=== PATIENT | female | born 1960 | race Caucasian/White ===

== ENCOUNTER → 2017-12-19 | Outpatient (CLI) | payer OTHER ==
[~2017-12-19] MED LIST: BUPR-149 PO; BUSP15TA69 PO; CALC-661 PO; CITA-139 PO; IBUP-56 PO; LISI-353 PO; LORA-802 PO; METH18ERPT PO
--- NOTE | 2017-12-19 13:44 | RADIOLOGY IMAGING REPORT ---
FACILITY: [facility] PATIENT NAME: Angelica Gale : 1960 MR: [id number] V: [id number] EXAM DATE: ORDERING PHYSICIAN: FRANCES COONEY TECHNOLOGIST: Location: [facility] Patient: Angelica Gale : 1960 Visit/Account:[id number] Date of Sevice: 12/19/2017 FOOT 3 VIEW RIGHT HISTORY: Medial foot pain COMPARISON: None FINDINGS: No evidence of acute fracture or dislocation. Bohler angle is well maintained. Base of the 5th metatarsal is intact. TMT joints are well aligned. Mild degenerative changes at the first MTP marianna int. IMPRESSION: 1. Mild degenerative changes at the first MTP joint. Report Dictated By: Beto Tucker MD at 12/19/2017 1:38 PM Report E-Signed By: Beto Tucker MD at 12/19/2017 1:39 PM WSN:[id number]
== END ==
LOC: RAD 10:20
PROVIDERS: ATTEND Nurse Practitioner Family
DX: M19.071 Primary osteoarthritis, right ankle and foot (principal)

== ENCOUNTER → 2018-02-16 | Outpatient (CLI) | payer OTHER ==
[2018-02-16 11:37] LABS: PLATELET COUNT, AUTOMATED 337 K/uL (150-450)
== END ==
LOC: LAB 10:45
PROVIDERS: ATTEND Nurse Practitioner Family
DX: Z00.00 Encounter for general adult medical examination without abnormal findings (principal)
CPT/HCPCS: 36415; 82040; 82247; 82310; 82374; 82435; 82465; 82565; 82947; 83718; 84075; 84132; 84155; 84295; 84443; 84450; 84460; 84478; 84520; 85025

== ENCOUNTER → 2018-02-16 | Outpatient (CLI) | payer OTHER | LOC: LAB 10:49 | PROVIDERS: ATTEND Psychiatry & Neurology Psychiatry | DX: F31.0 Bipolar disorder, current episode hypomanic (principal) | CPT/HCPCS: 82306; 84439; 84481 ==

== ENCOUNTER → 2018-09-09 | Outpatient (CLI) | payer OTHER ==
[~2018-09-09] MED LIST changes: -CITA-139 PO; +CITA-145 PO
--- NOTE | 2018-09-10 10:44 | RADIOLOGY IMAGING REPORT ---
[place] [facility] [place] HARSH PLASENCIA : [id number] MR: [id number] V: [id number] EXAM DATE: ORDERING PHYSICIAN: EULA GUZMÁN TECHNOLOGIST: Sara Mckeon PROCEDURE:BILATERAL DIGITAL SCREENING MAMMOGRAM WITH CAD ASSISTED INTERPRETATION & 3D TOMOSYNTHESIS COMPARISON:Prior mammograms 05/10/16, 11/17/13. INDICATIONS:SCREENING FINDINGS: Moderately dense fibroglandular tissue is seen throughout the breasts. The parenchymal pattern has remained stable allowing for difference in mammographic technique & patient positioning. There is no evidence of malignant appearing mass, malignant appearing calcifications or other secondary sign of malignancy in either breast. DIAGNOSTIC CATEGORY 1--NEGATIVE. RECOMMENDATIONS: ROUTINE MAMMOGRAM AND CLINICAL EVALUATION. IMPRESSION: BIRADS 1: Negative. No significant abnormality is seen. Dictated by: Aishwarya Rojas M.D. on 09/09/2018 at 16:56 Transcribed by: VIKAS on 09/10/2018 at 7:57 Approved by: Aishwarya Rojas M.D. on 09/10/2018 at 10:43 [facility]
== END ==
LOC: MAMO 02:18
PROVIDERS: ATTEND Nurse Practitioner Family
DX: Z12.31 Encounter for screening mammogram for malignant neoplasm of breast (principal)
CPT/HCPCS: 77063; 77067

== ENCOUNTER → 2019-07-14 | Outpatient (CLI) | payer OTHER ==
[2019-07-14 10:02] LABS: PLATELET COUNT, AUTOMATED 340 K/uL (150-450)
--- NOTE | 2019-07-14 10:23 | RADIOLOGY IMAGING REPORT ---
FACILITY: [facility] PATIENT NAME: Angelica Gale : 1960 MR: [id number] V: [id number] EXAM DATE: ORDERING PHYSICIAN: FRANCES COONEY TECHNOLOGIST: Location: [facility] Patient: Angelica Gale : 1960 Visit/Account:[id number] Date of Sevice: 07/14/2019 CHEST PA LAT Additional pertinent History: Syncope COMPARISON STUDIES: none FINDINGS: Support lines and catheters: None Lungs and Pleura: Lung mcgraw well expanded with no infiltrates or consolidations. No parenchymal ma ss lesions are seen. There are no effusions Heart and vasculature: Negative. Francine and Mediastinum: Negative. Bones and Chest wall: Negative. Upper Abdomen: Negative. IMPRESSION: 1. Negative chest Report Dictated By: Oesi Youssef MD at 07/14/2019 10:15 AM Report E-Signed By: Osei Youssef MD at 07/14/2019 10:16 AM WSN:[id number]
--- NOTE | 2019-07-14 11:29 | EKG ---
FACILITY: [facility] [place] PATIENT NAME: HARSH PLASENCIA : [id number] MR: [id number]: [id number] EXAM DATE: ORDERING PHYSICIAN: BANDAR COONEY TECHNOLOGIST: ALETHA Test Reason : SYNCOPE Blood Pressure : / mmHG Vent. Rate : 071 BPM Atrial Rate : 071 BPM P-R Int : 152 ms QRS Dur : 074 ms QT Int : 392 ms P-R-T Axes : 046 089 070 degrees QTc Int : 425 ms Sinus rhythm Borderline right axis Nonspecific T wave flattening Confirmed by ROHAN CUMMINGS ([id number]) on 07/14/2019 12:38:53 PM Referred By: EROS Confirmed By:ROHAN CUMMINGS
[2019-07-14 13:19] LABS: LDL CHOLESTEROL 158 mg/dl
== END ==
LOC: LAB 09:24
PROVIDERS: ATTEND Nurse Practitioner Family
DX: Z00.00 Encounter for general adult medical examination without abnormal findings (principal); R55 Syncope and collapse; R06.02 Shortness of breath
CPT/HCPCS: 36415; 71046; 82040; 82247; 82310; 82374; 82435; 82465; 82565; 82947; 83718; 84075; 84132; 84155; 84295; 84443; 84450; 84460; 84478; 84484; 84520; 85025; 85379; 93005